=== PATIENT | female | born 1960 | race Caucasian/White ===

== ENCOUNTER 2018-05-18 01:04 | Day surgery (SDC) | payer OTHER ==
[~2018-05-18] VITALS: Ht 167.6 cm; Wt 127.0 kg
[~2018-05-18 01:04] MED LIST: ALPR.25 PO; ASPI81CH PO; ATOR10 PO; BIEST TOP; Dhea Tablet1 EACH PO; FISH1000 PO; MULTI VITAMIN1 EACH PO; NEBI5 PO; PROBIOTIC1 EAC1 PO; PROG TOP; Prevacid15 M2 PO; VITAMIN D31000 UNIT PO
[2018-05-18] MEDS ORDERED: AMLO5 PO (07:46)
== END 2018-05-18 12:00 | disposition home or self-care (01) ==
LOC: MHTC 01:04
PROC: B2111ZZ Fluoroscopy of Multiple Coronary Arteries using Low Osmolar Contrast (ICD-10-PCS; principal; 2018-05-18)
PROC: 4A023N7 Measurement of Cardiac Sampling and Pressure, Left Heart, Percutaneous Approach (ICD-10-PCS; principal; 2018-05-18)
DX: R94.39 Abnormal result of other cardiovascular function study (principal); R07.9 Chest pain, unspecified; I10 Essential (primary) hypertension; R06.09 Other forms of dyspnea; R06.01 Orthopnea; E78.5 Hyperlipidemia, unspecified; R55 Syncope and collapse; R00.2 Palpitations; F41.9 Anxiety disorder, unspecified; Z82.49 Family history of ischemic heart disease and other diseases of the circulatory system; Z79.899 Other long term (current) drug therapy; Z79.82 Long term (current) use of aspirin; Z88.2 Allergy status to sulfonamides
CPT/HCPCS: 93458; 99152; 99153; C1769; C1894; J0690; J1644; J2250; J3010; J7030; Q9967